=== PATIENT | female | born 1945 | race Caucasian/White ===

== ENCOUNTER → 2023-02-11 14:17 | Outpatient (BNVA) | payer MEDICARE, OTHER, SELFPAY | PROVIDERS: PCP Internal Medicine; Visit Provider Nurse Practitioner Family ==

== ENCOUNTER 2023-02-11 14:18 | Outpatient (AMB) | payer MEDICARE, OTHER, SELFPAY ==
--- NOTE | 2023-02-11 14:16 | A.OFFVIS_ITS ---
Intake Vital Signs 02/11/23 14:25 Height 5 ft 3.5 in Weight 201 lb 2 oz BMI 35.1 BP 140/73 H Blood Pressure Location Lt brachial Position Sitting Pulse 88 Pulse Source Pulse Oximeter Pulse Oximetry (%) 96 Oxygen Delivery Method Room Air Intake Visit Reasons: Fibromyalgia Intake Note: Pain today 07/23 Activities Officer Required: No Accompanied by: Self / Same As Patient Allergies No Known Allergies Allergy (Verified 02/11/23 14:20) HPI Fibromyalgia HPI Details Patient is a pleasant 77 years old female with history of fibromyalgia, anxiety, benzodiazepine dependence, depression, esophageal reflux, lumbosacral spondylosis, osteoarthritis, HLD, hypothyroidism, and unknown etiology for neuropathy presents today for evaluation of widespread body pain, including bilateral feet, shoulder, neck, lower and middle back and bilateral arms. Denies any recent trauma or injury but reports significant pain increase after fall last May 2022. She fell on her right shoulder. Patient reports she used to walk and tolerate long distances but now has to frequently rest after 30 min of walking to pain. Patient reports she has seen multiple providers for this, including [facility] and [facility] who want her to consider surgery and injections but patient is not interested in those modalities. Patient was recently seen in [facility] for right shoulder MRI which showed surface tears and tendinopathy and was given pain medication and referred to physical therapy. patient reports cortisone injection for shoulder in September 2022 provided her significant pain relief but has no symptom improvement with PT. Patient was also seen by Dr. Norris, Database Analyst in [place] for back pain. She has lumbar spine MRI and was recommended to see Dr. Carranza, [facility] Neuro[facility] which patient declined. Patient was also resistant to CBD and/or THC for pain control but agreed to medical marijuana upon her request per referral notes. Patient also declined previous recommended steroid injections for her back pain which patient declined. Patient reports she is interested in evaluation for cause for her neuropathy and medical management of her pain but not interested in any interventional treatments or injections through our office at this time. She is asking if we are offering infusions for pain control. I have informed patient that our office does not offer opioid prescribing or infusions. Pain negatively affects her daily activities, functioning, sleep, mood and social interactions. Reports muscles aches and pain with joint stiffness upon awakening in the morning. Her pain intensifies depending on daily activity and on average is rated at 7-0/10. Denies any fever, weight loss, abdominal or groin pain, bladder or bowel dysfunction or saddle anesthesia. Location Bilateral feet, neck radiates down to bilateral shoulders and back, arms Duration Chronic pain for 18 years Characteristics of symptom or complaint Burning, aching, tingling, stiffness, numbness, throbbing, tingling, dull Aggravating or associated factors Walking, standing, varies from day to day Relieving factors Tylenol, rest, heat therapy, stretching exercises--mild to no pain relief Treatment Cortisone injections, acupunture, infusions at [facility], Mental therapy [facility] Medical History (Updated 02/14/23 @ 23:32 by DEEPAK Kyle) Anxiety Benzodiazepine dependence Depression Fibromyalgia GERD (gastroesophageal reflux disease) Hyperlipidemia Hypothyroidism Major depression Neuropathy Osteoarthritis Shoulder pain Social History Alcohol intake: current Alcohol intake frequency: holidays/special occasions only Patient Tobacco Use Status: Former Tobacco user Tobacco use type: Cigarette Review of Systems Const All systems reviewed & are unremarkable except as noted in HPI and below Neuro Denies Sensory deficit (Neuro) Physical Exam Vital Signs: Last Vital Signs Pulse 88 02/11/23 14:25 BP 140/73 H 02/11/23 14:25 Pulse Ox 96 02/11/23 14:25 Oxygen Delivery Method Room Air 02/11/23 14:25 BMI result Body Mass Index 35.1 General: Appears afebrile. Alert and oriented. Mood and affect appropriate. Follows and participates in conversation appropriately. Respiratory effort is unlabored. No cough. Able to transition from sit to stand unassisted. Ambulates with bilaterally normal heel strike and toe off. Back/Spine/Pelvis Other: Lumbar extension reproduces significant pain. Flexion reproduces mild to moderate pain. Multiple widespread TTPs 16/16 bilaterally, including upper and lower extremities. Cervical Spine: cervical ROM normal, cervical muscular tenderness and No Cervical spine tenderness Thoracic/Lumbar Spine: thoracic and lumbar spine normal to inspection, Lasegue's sign negative, straight leg raise negative bilaterally, pain with thoraco-lumbar ROM, paraspinal muscle tenderness, No thoracic spinal tenderness and lumbar spinal tenderness at L4 and at L5 Pelvis: no buttock tenderness Sacroiliac joints: bilaterally (Armando's test negative bilat. +Nolan sign bilat) tender to palpation Skin General skin exam: no rashes or lesions noted and dry skin Neuro Gait exam (Neuro): Antalgic gait present and No Assistive device used Motor exam (neuro): 5/5 motor strength present throughout, Pronator motor function not present and Motor abnormalities not present Sensory Exam: No Sensory deficit (Neuro) Extrem General: Yes capillary refill normal, Yes no clubbing, cyanosis or edema and Yes no calf tenderness Assessment & Plan Assessment & Plan (1) Chronic pain syndrome: Code(s): G89.4 - Chronic pain syndrome (2) Lumbosacral spondylosis: Code(s): M47.817 - Spondylosis without myelopathy or radiculopathy, lumbosacral region (3) Osteoarthritis: Code(s): M19.90 - Unspecified osteoarthritis, unspecified site (4) Neuropathy: Code(s): G62.9 - Polyneuropathy, unspecified (5) Fibromyalgia: Code(s): M79.7 - Fibromyalgia Plan 1. Will request medical records and imaging from previous pain specialists, [facility], and [facility] clinic. Patient was made aware our office does not offer Opioid Prescribing or Infusions for her pain generators. Neuropathy is of unknown etiology, will review previous records once received. Denies previous EMG studies. Discussed Qutenza for bilateral feet neuropathy, informational pamphlet provided. 2. Patient does have symptoms consistent with fibromyalgia and lower back pain with radicular symptoms which might need re-evaluation. I would like to review her previous lumbar xrays and MRIs. We also reviewed that fibromyalgia is a diffuse pain syndrome, non-autoimmune central afferent processing disorder and non-inflammatory. Patient was encouraged to slowly increase daily activity as tolerated, adequate hydration, sleep hygiene, healthy food choices, aqua therapy and CBT treatments. All questions and concerns have been answered and patient agreed with the plan. Follow up for record review/procedure discussion and sooner if needed. Coding Level of Care Code New Pt Level 4 (80507) Diagnoses Chronic pain syndrome G89.4 Lumbosacral spondylosis M47.817 Osteoarthritis M19.90 Neuropathy G62.9 Fibromyalgia M79.7
[2023-02-11 14:25] VITALS: BP 140/73; PULSE 88; O2SAT 96; BMI 35.1
== END 2023-02-11 14:58 | disposition home or self-care (01) ==
PROVIDERS: PCP Internal Medicine; Visit Provider Nurse Practitioner Family
DX: G89.4 Chronic pain syndrome (principal); M47.817 Spondylosis without myelopathy or radiculopathy, lumbosacral region; M19.90 Unspecified osteoarthritis, unspecified site; G62.9 Polyneuropathy, unspecified; M79.7 Fibromyalgia
CPT/HCPCS: 99203

== ENCOUNTER 2023-03-22 14:58 | Outpatient (AMB) | payer MEDICARE, OTHER, SELFPAY ==
--- NOTE | 2023-03-22 14:58 | MHC.OFFVIS ---
Intake Vital Signs 03/22/23 15:06 Height 5 ft 3.5 in Weight 203 lb 8 oz BMI 35.5 BP 160/88 H Blood Pressure Location Lt brachial Position Sitting Respiration 18 Pulse 101 H Pulse Source Pulse Oximeter Pulse Oximetry (%) 98 Oxygen Delivery Method Room Air Intake Visit Reasons: Fibromyalgia f/u/Confirmed/Request to see norma Allergies No Known Allergies Allergy (Verified 03/22/23 15:07) HPI HPI Comments History of Present Illness Details Priyanka presents back to the office today for follow up. Patient discussed Qutenza at last visit for painful peripheral neuropathy. She would like to proceed with in office application. She has tried gabapentin in the past but states it made her groggy during the day so she is not interested in trialling again. Patient continues to report pain in the lower back, non radiating, that was refractory to multiple LORI's in the past. Review of MRI from 03/2022 with patient today. She has not spoken with neurosurgeon in many years. She was told not a candidate for surgery in the past as nothing on her imaging warranted surgical intervention, this was prior to most recent MRI. Patient denies red flag symptoms including loss of bowel, bladder or saddle anesthesia. Patient recently referred to weight management in [place], she reports gaining almost 50# over the last several years d/t inability to walk long distances. Not being able to exercise is bothersome to her physically, mentally and emotionally. Prior: Patient is a pleasant 77 years old female with history of fibromyalgia, anxiety, benzodiazepine dependence, depression, esophageal reflux, lumbosacral spondylosis, osteoarthritis, HLD, hypothyroidism, and unknown etiology for neuropathy presents today for evaluation of widespread body pain, including bilateral feet, shoulder, neck, lower and middle back and bilateral arms. Denies any recent trauma or injury but reports significant pain increase after fall last May 2022. She fell on her right shoulder. Patient reports she used to walk and tolerate long distances but now has to frequently rest after 30 min of walking to pain. Patient reports she has seen multiple providers for this, including [facility] and [facility] who want her to consider surgery and injections but patient is not interested in those modalities. Patient was recently seen in [facility] for right shoulder MRI which showed surface tears and tendinopathy and was given pain medication and referred to physical therapy. patient reports cortisone injection for shoulder in September 2022 provided her significant pain relief but has no symptom improvement with PT. Patient was also seen by Dr. Norris, Elevator Mechanic Apprentice in [place] for back pain. She has lumbar spine MRI and was recommended to see Dr. Carranza, [facility] Neuro[facility] which patient declined. Patient was also resistant to CBD and/or THC for pain control but agreed to medical marijuana upon her request per referral notes. Patient also declined previous recommended steroid injections for her back pain which patient declined. Patient reports she is interested in evaluation for cause for her neuropathy and medical management of her pain but not interested in any interventional treatments or injections through our office at this time. She is asking if we are offering infusions for pain control. I have informed patient that our office does not offer opioid prescribing or infusions. Pain negatively affects her daily activities, functioning, sleep, mood and social interactions. Reports muscles aches and pain with joint stiffness upon awakening in the morning. Her pain intensifies depending on daily activity and on average is rated at 7-0/10. Denies any fever, weight loss, abdominal or groin pain, bladder or bowel dysfunction or saddle anesthesia. [facility] Medical History (Updated 03/22/23 @ 16:19 by Norma Manley APRN, [employer]) Shoulder pain Benzodiazepine dependence Hyperlipidemia GERD (gastroesophageal reflux disease) Hypothyroidism Major depression Neuropathy Osteoarthritis Fibromyalgia Depression Anxiety Social History Alcohol intake: current Alcohol intake frequency: holidays/special occasions only Patient Tobacco Use Status: Former Tobacco user Tobacco use type: Cigarette Review of Systems Const All systems reviewed & are unremarkable except as noted in HPI and below Physical Exam Vital Signs: Last Vital Signs Pulse 101 H 03/22/23 15:06 Resp 18 03/22/23 15:06 BP 160/88 H 03/22/23 15:06 Pulse Ox 98 03/22/23 15:06 Oxygen Delivery Method Room Air 03/22/23 15:06 BMI result Body Mass Index 35.5 General: awake, alert, oriented. Answers questions appropriately. Fully engaged in examination. Skin: warm, dry, intact HEENT: Normocephalic. Hearing intact. Cardiac: External chest normal in appearance. Respiratory: No cough, audible wheezing or stridor. Abdomen: without gross distension. MS: No obvious swelling or deformities. Able to stand on bilateral tiptoes and bilateral heels.? Able to transition from sit to stand unassisted. Ambulates with bilaterally normal heel strike and toe off Neurological: Oriented to person, place, time and situation. Thought process intact. Psychiatric: Appropriate mood and affect. Good judgment and insight. Results Reviewed Results Reviewed: 04/09/2022 EXAMINATION: MR LUMBAR SPINE WITHOUT CONTRAST CLINICAL INFORMATION: 76-year-old with low back pain with numbness in the feet. Spinal stenosis, lumbar region with neurogenic claudication. COMPARISON: 02/02/2016 MRI. TECHNIQUE: Multiplanar multisequence MR imaging of the lumbar spine was done without IV contrast. Study was performed on a [employer] - 1.2T Open MRI system. FINDINGS: CORONAL ALIGNMENT: Normal. SAGITTAL ALIGNMENT: Trace anterolisthesis at L4-L5 stable in appearance without spondylolysis. Mild retrolisthesis at L1-L2 slightly more apparent on current study. Lumbar lordotic curvature is maintained stable in appearance. LUMBOSACRAL JUNCTION: Normal. 5 nonrib-bearing lumbar-type vertebral bodies. Rudimentary S1-S2 intervertebral disc unchanged. VERTEBRAL BODIES: Vertebral body heights are well maintained stable in appearance. DISC SPACES AND ENDPLATES: Moderate disc space height loss and disc desiccation at L5-S1 is stable with mild to moderate spondylosis stable in appearance. Dxnz-wp-qileqonw intervertebral disc space height loss at L4-L5 with disc desiccation and minor endplate spurring stable in appearance. Mild disc space height loss and disc desiccation at L3-L4 stable. Hueajgma-fm-tgvdlr disc space height loss at L1-L2 has progressed from previous exam, now with some Schmorl's nodes also developed since previous exam. Disc desiccation is again noted and there is flpr-et-cpgpfguo spondylosis slightly progressed at this level. Axxmwbhn-mo-hlndtr intervertebral disc space height loss at T12-L1 minimally progressed with disc desiccation and spondylosis similar to the previous exam. Moderate disc space height loss, disc desiccation and spondylosis at T11-T12 is stable. There is anterolateral spondylosis at T10-T11 on current study. SPINAL CANAL: No abnormal developmental findings. BONE MARROW: No significant marrow-replacing process or bone marrow edema. Type II degenerative marrow signal changes seen along the endplates at L5-S1 stable in appearance. Minor type II degenerative marrow signal changes along the endplates at T12-L1 and L1-L2 on current exam. Minimal type II marrow signal changes at L4-L5 stable in appearance. CONUS MEDULLARIS: Terminates at L1-L2. Morphology and signal is normal. INTRADURAL NERVE ROOTS: There is crowding of the intradural nerve roots at L4-L5 progressed from previous exam consistent with progression of spinal stenosis at this level. Otherwise within normal limits. L5-S1: Concentric disc bulging is again noted with a superimposed central extruded disc herniation with mild caudal migration and mild flattening of the ventral dural sac stable in appearance. Severe right-sided and moderate left-sided facet arthropathy stable in appearance with ligamentum flavum thickening unchanged. Moderate right-sided and mild left-sided neural foraminal stenosis again noted. Disc osteophyte complex contacts the exiting right L5 nerve root stable in appearance. No significant central canal stenosis. Mild crowding of the subarticular zones bilaterally stable in appearance. L4-L5: There is slight unroofing of the posterior disc margin asymmetric to the left similar to the previous exam, with superimposed diffuse disc bulging. There is flattening the ventral dural sac and there is prominent ligamentum flavum thickening with interspinous ligament degeneration, with severe left-sided and gynwpquw-jz-tsutty right-sided facet arthropathy, now with imjuwutq-dz-amucac central spinal canal stenosis, progressed from previous study, with moderate right and at lfteceti-en-nndapt left lateral recess stenosis slightly progressed from previous exam with impingement on the traversing L5 nerve roots, left more than right progressed. No significant neural foraminal stenosis. L3-L4: There is disc bulging with superimposed subarticular to foraminal disc protrusions noted bilaterally similar to the previous exam with mild ligamentum flavum thickening and interspinous ligament degeneration, with mild right and moderate left facet arthropathy with minimal central canal stenosis stable in appearance. Slight narrowing of the subarticular zones is stable. There is rwcy-me-dukjfopi left-sided neural foraminal stenosis which has developed since the previous exam probably reflective of some progression of left-sided facet arthropathy without definite neural impingement. L2-L3: Very small inferior foraminal disc protrusion on the left without neural impingement on current study. No significant canal stenosis. Mild bilateral facet arthrosis noted without significant neural foraminal stenosis. L1-L2: Mild retrolisthesis noted slightly more prominent on current study. Previously noted central to right paramedian extruded disc herniation with cephalad migration at this level has largely resolved. There is disc bulging and endplate spurring with mild flattening of the ventral dural sac without conus impingement or canal stenosis. There is minor facet arthrosis bilaterally with mild foraminal narrowing bilaterally which has developed since previous exam likely reflecting retrolisthesis. No neural impingement. T12-L1: Mild broad-based central disc protrusion slightly more prominent on current study with minimal flattening of the ventral thecal sac without canal stenosis or cord impingement and no significant neural foraminal stenosis. PARASPINAL/RETROPERITONEAL: The visualized paravertebral soft tissues appear unremarkable. IMPRESSION: 1. Trace anterolisthesis at L4-L5 stable in appearance without spondylolysis. Mild retrolisthesis at L1-L2 slightly more prominent. 2. Multilevel DDD and spondylosis, with multilevel disc bulging and disc protrusions as described above, with zmtrprqp-gy-kvzhev spinal canal stenosis at L4-L5 progressed from previous exam with impingement on the traversing L5 nerve roots, left more than right progressed from previous exam. 3. Multilevel bilateral facet arthropathy, with multilevel interspinous ligament degeneration and multilevel bilateral neural foraminal stenosis, most apparent on the right at L5-S1 and on the left at L3-L4 with progression of left-sided facet arthropathy at L3-L4 since prior exam. 4. Mild retrolisthesis at L1-L2 slightly more prominent on current study. Previously noted central to right paramedian extruded disc herniation with cephalad migration at this level has largely resolved. Assessment & Plan Assessment & Plan (1) Lumbosacral spondylosis: Code(s): M47.817 - Spondylosis without myelopathy or radiculopathy, lumbosacral region (2) Spinal stenosis: Code(s): M48.00 - Spinal stenosis, site unspecified (3) Chronic pain syndrome: Code(s): G89.4 - Chronic pain syndrome (4) Osteoarthritis: Code(s): M19.90 - Unspecified osteoarthritis, unspecified site (5) Neuropathy: Code(s): G62.9 - Polyneuropathy, unspecified (6) Fibromyalgia: Code(s): M79.7 - Fibromyalgia Plan Priyanka is a very pleasant 77 year old female who presented to the office today for follow up bilateral peripheral neuropathy and lower back pain. Dion COVINGTON submitted today. Neurosurgery referral ordered. Gabapentin offered, patient declined as she has tried in the past and did not tolerate. She is not interested in medication that will make her groggy. Discussed options for treatment including diagnostic interventional testing, epidural steroid injections, peripheral nerve stimulation with Sprint, RFA and more permanent neuromodulation. Informational pamphlets provided. Discussed Curonix PNS for bilateral peripheral neuropathy if patient's symptoms do not improve with Qutenza topical application. All questions and concerns have been answered and patient agrees with the plan. Patient will follow up here for Qutenza, sooner if needed. Orders: Referrals Neuro Spine Referral M47.817 - Spondylosis without myelopathy or radiculopathy, lumbosacral region, M48.00 - Spinal stenosis, site unspecified Coding Level of Care Code Est Pt Level 3 (83227) Diagnoses Lumbosacral spondylosis M47.817 Spinal stenosis M48.00 Chronic pain syndrome G89.4 Osteoarthritis M19.90 Neuropathy G62.9 Fibromyalgia M79.7
[2023-03-22 15:06] VITALS: BP 160/88; PULSE 101; RESP 18; O2SAT 98; BMI 35.5
== END 2023-03-22 15:31 | disposition home or self-care (01) ==
PROVIDERS: PCP Internal Medicine; Visit Provider Registered Nurse Emergency
DX: M47.817 Spondylosis without myelopathy or radiculopathy, lumbosacral region (principal); M48.00 Spinal stenosis, site unspecified; G89.4 Chronic pain syndrome; M19.90 Unspecified osteoarthritis, unspecified site; G62.9 Polyneuropathy, unspecified; M79.7 Fibromyalgia
CPT/HCPCS: 99213

== ENCOUNTER → 2023-03-22 14:58 | Outpatient (BNVA) | payer MEDICARE, OTHER, SELFPAY | PROVIDERS: PCP Internal Medicine; Visit Provider Registered Nurse Emergency | DX: G89.4 Chronic pain syndrome (principal); M47.817 Spondylosis without myelopathy or radiculopathy, lumbosacral region; M48.00 Spinal stenosis, site unspecified; M19.90 Unspecified osteoarthritis, unspecified site; G62.9 Polyneuropathy, unspecified; M79.7 Fibromyalgia | CPT/HCPCS: 99212 ==

== ENCOUNTER 2023-04-28 14:37 | Outpatient (AMB) | payer MEDICARE, OTHER, SELFPAY ==
[2023-04-28 14:55] VITALS: BP 142/69; PULSE 93; RESP 18; O2SAT 97
--- NOTE | 2023-04-28 14:55 | A.OFFVIS_ITS ---
Intake Vital Signs 04/28/23 14:55 04/28/23 15:53 04/28/23 15:53 Height 5 ft 3.5 in BMI Reason not done Patient refused/unable BP 142/69 H 117/63 111/64 Blood Pressure Location Lt brachial Lt brachial Position Sitting Respiration 18 Pulse 93 Pulse Source Pulse Oximeter Pulse Oximetry (%) 97 Oxygen Delivery Method Room Air Intake Visit Reasons: Qutenza Allergies No Known Allergies Allergy (Verified 04/28/23 14:54) HPI HPI Comments History of Present Illness Details Priyanka presents to the office today for application of 8% Capsaicin for painful peripheral neuropathy. She applied EMLA cream to both feet prior to appointment as instructed. Pain was 6/10 before application of the EMLA cream. She denies any changes to her peripheral neuropathy since last visit and would like to proceed with application of the Qutenza patches. Her son drove her to the appointment today. Prior: Priyanka presents back to the office today for follow up. Patient discussed Qutenza at last visit for painful peripheral neuropathy. She would like to proceed with in office application. She has tried gabapentin in the past but states it made her groggy during the day so she is not interested in trialling again. Patient continues to report pain in the lower back, non radiating, that was refractory to multiple LORI's in the past. Review of MRI from 03/2022 with patient today. She has not spoken with neurosurgeon in many years. She was told not a candidate for surgery in the past as nothing on her imaging warranted surgical intervention, this was prior to most recent MRI. Patient denies red flag symptoms including loss of bowel, bladder or saddle anesthesia. Patient recently referred to weight management in [place], she reports gaining almost 50# over the last several years d/t inability to walk long distances. Not being able to exercise is bothersome to her physically, mentally and emotionally. Prior: Patient is a pleasant 77 years old female with history of fibromyalgia, anxiety, benzodiazepine dependence, depression, esophageal reflux, lumbosacral spondylosis, osteoarthritis, HLD, hypothyroidism, and unknown etiology for neuropathy presents today for evaluation of widespread body pain, including bilateral feet, shoulder, neck, lower and middle back and bilateral arms. Denies any recent trauma or injury but reports significant pain increase after fall last May 2022. She fell on her right shoulder. Patient reports she used to walk and tolerate long distances but now has to frequently rest after 30 min of walking to pain. Patient reports she has seen multiple providers for this, including [facility] and [facility] who want her to consider surgery and injections but patient is not interested in those modalities. Patient was recently seen in [facility] for right shoulder MRI which showed surface tears and tendinopathy and was given pain medication and referred to physical therapy. patient reports cortisone injection for shoulder in September 2022 provided her significant pain relief but has no symptom improvement with PT. Patient was also seen by Dr. Norris, [employer] in [place] for back pain. She has lumbar spine MRI and was recommended to [place]. Carranza, [facility] which patient declined. Patient was also resistant to CBD and/or THC for pain control but agreed to medical marijuana upon her request per referral notes. Patient also declined previous recommended steroid injections for her back pain which patient declined. Patient reports she is interested in evaluation for cause for her neuropathy and medical management of her pain but not interested in any interventional treatments or injections through our office at this time. She is asking if we are offering infusions for pain control. I have informed patient that our office does not offer opioid prescribing or infusions. Pain negatively affects her daily activities, functioning, sleep, mood and social interactions. Reports muscles aches and pain with joint stiffness upon awakening in the morning. Her pain intensifies depending on daily activity and on average is rated at 7-0/10. Denies any fever, weight loss, abdominal or groin pain, bladder or bowel dysfunction or saddle anesthesia. [facility] Medical History (Updated 04/28/23 @ 15:19 by Berna Manley APRN, [employer]) Shoulder pain Benzodiazepine dependence Hyperlipidemia GERD (gastroesophageal reflux disease) Hypothyroidism Major depression Neuropathy Osteoarthritis Fibromyalgia Depression Anxiety Social History Alcohol intake: current Alcohol intake frequency: holidays/special occasions on ly Patient Tobacco Use Status: Former Tobacco user Tobacco use type: Cigarette Review of Systems Const All systems reviewed & are unremarkable except as noted in HPI and below Physical Exam Vital Signs: Last Vital Signs Pulse 93 04/28/23 14:55 Resp 18 04/28/23 14:55 BP 142/69 H 04/28/23 14:55 Pulse Ox 97 04/28/23 14:55 Oxygen Delivery Method Room Air 04/28/23 14:55 General: awake, alert, oriented. Answers questions appropriately. Fully engaged in examination. Skin: warm, dry, intact. No open sores, rashes or wounds noted to either foot. Light touch sensation intact both feet HEENT: Normocephalic. Hearing intact. Cardiac: External chest normal in appearance. Respiratory: No cough, audible wheezing or stridor. Abdomen: without gross distension. MS: No obvious swelling or deformities. Able to transition from sit to stand unassisted. Ambulates with bilaterally normal heel strike and toe off Neurological: Oriented to person, place, time and situation. Thought process intact. Psychiatric: Appropriate mood and affect. Good judgment and insight. Office Meds capsaicin-skin cleanser 8 % topical kit Performing Provider: Berna Manley APRN, CNP Performing Location: [facility] Administered by: Berna Manley APRN, CNP on 04/28/23 15:21 Dose Route Admin Location Dispensed Lot Number Expiration Date [facility] Condenser Operator 2 ea topical 2 ea [id number] 06/13/25 [id number] [employer] Comments: Patient applied topical EMLA cream to both feet prior to arrival for her scheduled appointment. Feet exposed, no wounds, rashes or breaks in skin noted. Light touch sensation intact bilaterally. Four single use topical patches (179mg capsaicin) divided between feet, 2 patches per foot, wrapped and secured per package instructions. Patient monitored throughout the procedure with BP checks every 15 minutes. She tolerated the 30 minute application well. Results Reviewed Results Reviewed: 04/09/2022 EXAMINATION: MR LUMBAR SPINE WITHOUT CONTRAST CLINICAL INFORMATION: 76-year-old with low back pain with numbness in the feet. Spinal stenosis, lumbar region with neurogenic claudication. COMPARISON: 02/02/2016 MRI. TECHNIQUE: Multiplanar multisequence MR imaging of the lumbar spine was done without IV contrast. Study was performed on a [employer] - 1.2T Open MRI system. FINDINGS: CORONAL ALIGNMENT: Normal. SAGITTAL ALIGNMENT: Trace anterolisthesis at L4-L5 stable in appearance without spondylolysis. Mild retrolisthesis at L1-L2 slightly more apparent on current study. Lumbar lordotic curvature is maintained stable in appearance. LUMBOSACRAL JUNCTION: Normal. 5 nonrib-bearing lumbar-type vertebral bodies. Rudimentary S1-S2 intervertebral disc unchanged. VERTEBRAL BODIES: Vertebral body heights are well maintained stable in appearance. DISC SPACES AND ENDPLATES: Moderate disc space height loss and disc desiccation at L5-S1 is stable with mild to moderate spondylosis stable in appearance. Fuwq-fl-hcpcopup intervertebral disc space height loss at L4-L5 with disc desiccation and minor endplate spurring stable in appearance. Mild disc space height loss and disc desiccation at L3-L4 stable. Dfbqrhfr-ci-jhtsqh disc space height loss at L1-L2 has progressed from previous exam, now with some Schmorl's nodes also developed since previous exam. Disc desiccation is again noted and there is pufc-bw-azkxrqob spondylosis slightly progressed at this level. Nzqyukng-nq-wsktwv intervertebral disc space height loss at T12-L1 minimally progressed with disc desiccation and spondylosis similar to the previous exam. Moderate disc space height loss, disc desiccation and spondylosis at T11-T12 is stable. There is anterolateral spondylosis at T10-T11 on current study. SPINAL CANAL: No abnormal developmental findings. BONE MARROW: No significant marrow-replacing process or bone marrow edema. Type II degenerative marrow signal changes seen along the endplates at L5-S1 stable in appearance. Minor type II degenerative marrow signal changes along the endplates at T12-L1 and L1-L2 on current exam. Minimal type II marrow signal changes at L4-L5 stable in appearance. CONUS MEDULLARIS: Terminates at L1-L2. Morphology and signal is normal. INTRADURAL NERVE ROOTS: There is crowding of the intradural nerve roots at L4-L5 progressed from previous exam consistent with progression of spinal stenosis at this level. Otherwise within normal limits. L5-S1: Concentric disc bulging is again noted with a superimposed central extruded disc herniation with mild caudal migration and mild flattening of the ventral dural sac stable in appearance. Severe right-sided and moderate left-sided facet arthropathy stable in appearance with ligamentum flavum thickening unchanged. Moderate right-sided and mild left-sided neural foraminal stenosis again noted. Disc osteophyte complex contacts the exiting right L5 nerve root stable in appearance. No significant central canal stenosis. Mild crowding of the subarticular zones bilaterally stable in appearance. L4-L5: There is slight unroofing of the posterior disc margin asymmetric to the left similar to the previous exam, with superimposed diffuse disc bulging. There is flattening the ventral dural sac and there is prominent ligamentum flavum thickening with interspinous ligament degeneration, with severe left-sided and tzfgbdwq-ks-kiudfj right-sided facet arthropathy, now with adghyzaz-ox-qbthsz central spinal canal stenosis, progressed from previous study, with moderate right and at olnoabmz-od-jrpqsj left lateral recess stenosis slightly progressed from previous exam with impingement on the traversing L5 nerve roots, left more than right progressed. No significant neural foraminal stenosis. L3-L4: There is disc bulging with superimposed subarticular to foraminal disc protrusions noted bilaterally similar to the previous exam with mild ligamentum flavum thickening and interspinous ligament degeneration, with mild right and moderate left facet arthropathy with minimal central canal stenosis stable in appearance. Slight narrowing of the subarticular zones is stable. There is jcwl-qp-mjsnqftj left-sided neural foraminal stenosis which has developed since the previous exam probably reflective of some progression of left-sided facet arthropathy without definite neural impingement. L2-L3: Very small inferior foraminal disc protrusion on the left without neural impingement on current study. No significant canal stenosis. Mild bilateral facet arthrosis noted without significant neural foraminal stenosis. L1-L2: Mild retrolisthesis noted slightly more prominent on current study. Previously noted central to right paramedian extruded disc herniation with cephalad migration at this level has largely resolved. There is disc bulging and endplate spurring with mild flattening of the ventral dural sac without conus impingement or canal stenosis. There is minor facet arthrosis bilaterally with mild foraminal narrowing bilaterally which has developed since previous exam likely reflecting retrolisthesis. No neural impingement. T12-L1: Mild broad-based central disc protrusion slightly more prominent on current study with minimal flattening of the ventral thecal sac without canal stenosis or cord impingement and no significant neural foraminal stenosis. PARASPINAL/RETROPERITONEAL: The visualized paravertebral soft tissues appear unremarkable. IMPRESSION: 1. Trace anterolisthesis at L4-L5 stable in appearance without spondylolysis. Mild retrolisthesis at L1-L2 slightly more prominent. 2. Multilevel DDD and spondylosis, with multilevel disc bulging and disc protrusions as described above, with ovxmitsk-uy-fygegf spinal canal stenosis at L4-L5 progressed from previous exam with impingement on the traversing L5 nerve roots, left more than right progressed from previous exam. 3. Multilevel bilateral facet arthropathy, with multilevel interspinous ligament degeneration and multilevel bilateral neural foraminal stenosis, most apparent on the right at L5-S1 and on the left at L3-L4 with progression of left-sided facet arthropathy at L3-L4 since prior exam. 4. Mild retrolisthesis at L1-L2 slightly more prominent on current study. Previously noted central to right paramedian extruded disc herniation with cephalad migration at this level has largely resolved. Assessment & Plan Assessment & Plan (1) Peripheral neuropathy: Code(s): G62.9 - Polyneuropathy, unspecified (2) Lumbosacral spondylosis: Code(s): M47.817 - Spondylosis without myelopathy or radiculopathy, lumbosacral region (3) Spinal stenosis: Code(s): M48.00 - Spinal stenosis, site unspecified (4) Chronic pain syndrome: Code(s): G89.4 - Chronic pain syndrome (5) Osteoarthritis: Code(s): M19.90 - Unspecified osteoarthritis, unspecified site (6) Neuropathy: Code(s): G62.9 - Polyneuropathy, unspecified (7) Fibromyalgia: Code(s): M79.7 - Fibromyalgia Plan Priyanka is a very pleasant 77 year old female who presented to the office today for follow up bilateral peripheral neuropathy and Capsaicin 8% topical applicati on. Patient tolerated Qutenza application well. Gabapentin offered, patient declined as she has tried in the past and did not tolerate. She would like to try lidocaine topical as needed. All questions and concerns have been answered and patient agrees with the plan. Patient will follow up here for Qutenza, sooner if needed. Orders: Orders AMB Capsaicin Patch - Practice Supplied Today G62.9 - Polyneuropathy, unspecified Medications: New lidocaine 5% 1 appl topical TID PRN 50 grams 0RF pain Coding Level of Care Code Est Pt Level 4 (59945) Diagnoses Peripheral neuropathy G62.9 Lumbosacral spondylosis M47.817 Spinal stenosis M48.00 Chronic pain syndrome G89.4 Osteoarthritis M19.90 Neuropathy G62.9 Fibromyalgia M79.7
[2023-04-28 15:53] VITALS: BP 111/64; BP 117/63
== END 2023-04-28 16:02 | disposition home or self-care (01) ==
PROVIDERS: PCP Internal Medicine; Visit Provider Registered Nurse Emergency
DX: M48.00 Spinal stenosis, site unspecified (principal); M47.817 Spondylosis without myelopathy or radiculopathy, lumbosacral region; G89.4 Chronic pain syndrome; G62.9 Polyneuropathy, unspecified; M19.90 Unspecified osteoarthritis, unspecified site; M79.7 Fibromyalgia
CPT/HCPCS: 17999; 99214

== ENCOUNTER → 2023-04-28 14:37 | Outpatient (BNVA) | payer MEDICARE, OTHER, SELFPAY | PROVIDERS: PCP Internal Medicine; Visit Provider Registered Nurse Emergency | DX: M47.817 Spondylosis without myelopathy or radiculopathy, lumbosacral region (principal); M19.90 Unspecified osteoarthritis, unspecified site; M79.7 Fibromyalgia; G62.9 Polyneuropathy, unspecified; M48.00 Spinal stenosis, site unspecified; G89.4 Chronic pain syndrome | CPT/HCPCS: 17999; 99212; J7336 ==

== ENCOUNTER 2023-05-10 12:52 | Outpatient (AMB) | payer MEDICARE, OTHER, SELFPAY ==
--- NOTE | 2023-05-10 13:03 | A.SPINEOV_ITS ---
Intake Intake Visit Reasons: spinal stenosis Intake Note: Ms. Valentin is here today c/o of back pain. MRI done @ [facility]. [employer] Required: No Allergies No Known Allergies Allergy (Verified 04/28/23 14:54) Assessment & Plan Assessment & Plan (1) Spinal stenosis: Code(s): M48.00 - Spinal stenosis, site unspecified Plan Dear Berna, Thank you for referring Mrs Valentin to our office today. She is 77-year-old female who has a known diagnosis of peripheral neuropathy, presenting as a feeling of aching in the tips of her toes on both of her feet. It is to some degree activity related, but can be present all the time. She has seen multiple pain specialists, she has seen multiple neurosurgeons including Dr. Carranza at [facility] last year. He told her she was not a surgical candidate. She is here today to be re-evaluated to see if there is anything we can do for her in the setting of this pain in her toes. She does not report any claudicating symptoms going down her legs into her thighs or calves. There is no tingling numbness or burning. She does have bad knees and has knee pain, as well as diffuse aches all throughout her body consistent with fibromyalgia. She has been through cortisone injections in her back, chiropractic, physical therapy and acupuncture. Nothing ever seems to help. PMH: She reports a history of high cholesterol Social hx: No previous surgery Medications: Hydrochlorothiazide, levothyroxine, rosuvastatin, lorazepam, multivitamin, turmeric Allergies: None Physical exam: She is awake alert oriented, she has full strength of bilateral lower extremities with normal reflexes. Gait is normal. Imaging review: Lumbar MRI done in [address] [facility] shows that she has degenerative disc disease at multiple levels, moderate to severe stenosis in the lateral recess at L4-5. Impression: 77-year-old female with a 17 year history of aches and pains in her toes, diagnosed with peripheral neuropathy. She has tried many conservative treatments for this but nothing seems to work. She also has an overlapping diagnosis of fibromyalgia and diffuse body aches. She saw Dr. Carranza last year who said she is not a surgical candidate. At this time she has no clinical symptoms of the stenosis that we see on the MRI. It is not uncommon in her age group to see lumbar stenosis as an incidental finding. I educated her on the signs and symptoms of stenosis including pain going down her buttocks, legs into her calves with walking which goes away when she sits. If she starts to develop these symptoms she will contact us. Thank you for allowing us to care for your patient. The total time spent with this visit with this patient was 45 minutes reviewing history, physical exam, lumbar imaging review, and implementation of treatment plan or further diagnostic testing Hao Pelayo MD,PhD [facility] Coding Level of Care Code New Pt Level 4 (21243) Diagnoses Spinal stenosis M48.00
== END 2023-05-10 13:34 | disposition home or self-care (01) ==
PROVIDERS: PCP Internal Medicine; Referring Provider Registered Nurse Emergency; Visit Provider Physician Assistant
DX: M48.00 Spinal stenosis, site unspecified (principal)
CPT/HCPCS: 99204

== ENCOUNTER → 2023-05-10 12:52 | Outpatient (BNVA) | payer MEDICARE, OTHER, SELFPAY | PROVIDERS: PCP Internal Medicine; Visit Provider Physician Assistant | DX: M48.00 Spinal stenosis, site unspecified (principal) | CPT/HCPCS: 99202 ==